=== PATIENT | male | born 1990 | race Two or more races ===

== ENCOUNTER 2016-10-07 03:55 | Emergency (ER) | payer SELFPAY ==
--- NOTE | 2016-10-07 04:22 | ED Physician Chart ---
Chief Complaint/HPI - Patient Information Date Seen:: 10/07/16 Time Seen:: 04:10 Chief Complaint:: numbness History of Present Illness:: while laying in bed tonight felt anxious and then felt a numb area of the occiput. Vitals:: Vital Signs - 8 hr 10/07/16 04:00 Temp 98.1 F HR 77 RR 16 BP 143/93 O2 Sat % 98 Historian:: Patient Review:: Nurse's Note Reviewed Review of Systems - Review of Systems General/Constitutional: No fever, No chills Skin: No skin lesions Head: No headache Eyes: No loss of vision, Other ENT: No earache Neck: No neck pain Cardio Vascular: No chest pain, No palpitations Pulmonary: No SOB GI: No nausea, No vomiting G/U: No dysuria Musculoskeletal: No bone or joint pain, No muscle pain Psychiatric: Prior psych history Hematopoietic: No bruising Allergic/Immuno: No urticaria Neurological: No syncope Past Medical History - Past Medical History Past Medical History: Other (anxiety; asthma) Family History: Diabetes Melitus, Other (asthma) Social History: Non Smoker Surgical History: None Psychiatricy History: Other (anxiety) Medication: Reviewed Physical Exam - Physical Examination General/Constitutional: Well-developed, well-nourished, Alert Head: Atraumatic Eyes: Lids, conjuctiva normal, PERRL Skin: Nl inspection, No rash, No skin lesions, No ecchymosis, Well hydrated, No lymphadenopathy Other Skin comments:: occipital scalp looks and palpates normal ENMT: External ears, nose nl, TM canals nl, Nasal exam nl, Lips, teeth, gums nl , Oropharynx nl, Tonsils nl Neck: No nuchal rigidity Respiratory: Nl effort/Exclusion, Clear to Auscultation Cardio Vascular: RRR, No murmur, gallop, rubs GI: No tenderness/rebounding/guarding, No organomegaly, No hernia, Normal BS's, Nondistended, No mass/bruits : No CVA tenderness Extremities: Normal digits & nails Neuro/Psych: No focal deficits Misc: Normal back Labs/Radiology/EKG Results - Lab Results Comments:: accucheck 91 ED Septic Shock - . Is Septic Shock (SBP<90, OR Lactate>4 mmol\L) present?: No - <6hrs of presentation: Vital Signs: Vital Signs - 8 hr 10/07/16 04:00 Temp 98.1 F HR 77 RR 16 BP 143/93 O2 Sat % 98 Reassessment (Disposition) - Reassessment Reassessment Condition:: Unchanged - Diagnosis Diagnosis:: parathesias - Aftercare/Follow up Instructions Aftercare/Follow-Up Instructions:: Refer to Discharge Instructions - Patient Disposition Discharge/Transfer:: Home Condition at Disposition:: Stable, Unchanged
== END 2016-10-07 05:00 | disposition home or self-care (01) ==
LOC: ER 03:55
DX: R20.9 Unspecified disturbances of skin sensation (principal); F41.9 Anxiety disorder, unspecified; J45.909 Unspecified asthma, uncomplicated
CPT/HCPCS: 82948-90; Z7502